=== PATIENT | female | born 1960 | race Caucasian/White ===

== ENCOUNTER 2017-04-01 05:49 | Day surgery (SDC) | payer OTHER ==
[~2017-04-01] VITALS: Ht 162.6 cm; Wt 73.5 kg
[~2017-04-01 05:49] MED LIST: CALCIUM 500 MG1 EACH PO; MEGARED OMEGA-1 EAC2 PO; METFORMIN HCL500 M1 PO; METFORMIN HCL500 M4 PO; MULTIPLE VITAM1 EACH PO; NORVASC10 MG PO; PREDNISONE10 MG PO
[2017-04-01 06:09] VITALS: BP 144/77
[2017-04-01 07:19] LABS: POINT-OF-CARE METER ID UU14174212
[2017-04-01 10:54] VITALS: BP 131/71
[2017-04-01 11:55] VITALS: BP 147/77
== END 2017-04-01 11:55 | disposition home or self-care (01) ==
LOC: SDC 05:49
PROVIDERS: Ophthalmology
DX: T85.22XA Displacement of intraocular lens, initial encounter (principal); H43.392 Other vitreous opacities, left eye
CPT/HCPCS: 82948; J0690; J1100; J1120; J1170; J1885; J2250; J2405; J2795; J3010; V2632